=== PATIENT | male | born 1965 | race Caucasian/White ===

== ENCOUNTER → 2016-09-28 | Outpatient (CLI) | payer OTHER ==
[~2016-09-28] MED LIST: ASPIRIN (CHILDR81 MG PO; BRILINTA90 MG PO; COREG 3.1253.125 MG PO; FISH OIL1000 MG PO; LIPITOR80 MG PO; NICODERM (HABIT14 MG TRANS; NITROSTAT0.4 MG SL; PRILOSEC20 MG PO; PROTONIX40 MG PO; VASOTEC20 MG PO
[2016-09-28 08:55] LABS: ALBUMIN 3.7 gm/dL (3.5-5.0); ALK PHOS 123 IU/L (33-138); ALT 34 IU/L (12-78); ANION GAP 10.5 (10.0-19.0); AST 25 IU/L (10-40); BLOOD UREA NITROGEN 10 mg/dL (6-24); CALCIUM 8.5 mg/dL (8.5-10.5); CHLORIDE 110 mMol/L (96-110); CO2 27 mMol/L (22-32); ESTIMATED GFR (MDRD EQUATION) > 60; POTASSIUM 4.5 mMol/L (3.7-5.1); SODIUM 143 mMol/L (135-145); TOTAL BILIRUBIN 0.5 mg/dL (0.0-1.5)
== END | disposition disaster alternative care site (69) ==
LOC: LNHI 08:39
PROVIDERS: Internal Medicine Interventional Cardiology
DX: I10 Essential (primary) hypertension (principal); E78.5 Hyperlipidemia, unspecified; I25.10 Atherosclerotic heart disease of native coronary artery without angina pectoris